=== PATIENT | female | born 1950 | race Caucasian/White ===

== ENCOUNTER → 2017-08-21 | Outpatient (CLI) | payer MEDICARE, OTHER ==
[~2017-08-21] MED LIST: CARTIA XT300 MG PO; LEXAPRO10 MG PO
--- NOTE | 2017-08-21 17:36 | Diagnostic Imaging Report ---
Exam: Head CT without contrast History: New onset headache Comparison studies: Brain MRI of 10/18/2014 Technique: Axial images were obtained from the skull base to the vertex. Coronal and sagittal images reconstructed from the axial data. Intravenous contrast: None Findings: Scalp: No abnormalities. Bones: No fractures, blastic or lytic lesions. Brain sulci: Appropriate for age. Ventricles: Normal in size and configuration. No hydrocephalus. Extra-axial spaces: No masses, no fluid collection. Parenchyma: No abnormal densities. No masses, acute hemorrhage or acute or chronic cortical vascular insults. Minimal chronic microvascular ischemic changes as seen on the previous brain MRI 10/18/2014 are beyond resolution of CT. Sellar/suprasellar region: No abnormalities. Craniocervical junction: Patent foramen magnum. No Chiari one malformation. Incidental findings: Bilateral lens replacements related to previous cataract surgery. IMPRESSION: 1. No acute intracranial abnormalities. 2. Minimal chronic microvascular ischemic changes as seen on the previous brain MRI are beyond resolution of CT. Signed by: Dr. Frankie Lamas M.D. on 08/21/2017 5:32 PM
== END ==
LOC: CT 16:07
PROVIDERS: ATTEND Family Medicine
DX: R51 Headache (principal); R42 Dizziness and giddiness
CPT/HCPCS: 70450

== ENCOUNTER 2018-04-29 21:25 | Emergency (ER) | payer MEDICARE, OTHER ==
[~2018-04-29] VITALS: Ht 162.6 cm; Wt 86.2 kg
--- OUTSIDE RECORDS SUMMARY | 2018-04-29 21:27 | XMS REPORT ---
Author Author [facility] Address Unknown Phone Unavailable Care Team Providers Care Data Reporting Analyst Name Role Phone ANNA MARIE SANCHEZ Unavailable Unavailable Problems This patient has no known problems. Allergies, Adverse Reactions, Alerts This patient has no known allergies or adverse reactions. Medications This patient has no known medications. Results Test Description Test Time Test Comments Text Results Atomic Results Result Comments CT BRAIN WO [place] [address] Patient Name: BRETT PACKER MR #: [id number] : 1950 Age/Sex: 66/F Req #: [id number] Adm Physician: Ordered by: ANNA MARIE SANCHEZ DO Report #: [id number] Location: CT Room/Bed: Procedure: [id number] CT/CT BRAIN WO Exam Date: 08/21/17 Exam Time: 1624 REPORT STATUS: Signed Exam: Head CT without contrast History: New onset headache Comparison studies: Brain MRI of 10/18/2014 Technique: Axial images were obtained from the skull base to the vertex. Coronal and sagittal images reconstructed from the axial data. Intravenous contrast: None Findings: Scalp: No abnormalities. Bones: No fractures, blastic or lytic lesions. Brain sulci: Appropriate for age. Ventricles: Normal in size and configuration. No hydrocephalus. Extra-axial spaces: No masses, no fluid collection. Parenchyma: No abnormal densities. No masses, acute hemorrhage or acute or chronic cortical vascular insults. Minimal chronic microvascular ischemic changes as seen on the previous brain MRI 10/18/2014 are beyond resolution of CT. Sellar/suprasellar region: No abnormalities. Craniocervical junction: Patent foramen magnum. No Chiari one malformation. Incidental findings: Bilateral lens replacements related to previous cataract surgery. IMPRESSION: 1. No acute intracranial abnormalities. 2. Minimal chronic microvascular ischemic changes as seen on the previous brain MRI are beyond resolution of CT. Signed by: Dr. Rafael Zepeda M.D. on 08/21/2017 5:32 PM Dictated By: RAFAEL ZEPEDA MD 173 Transcribed By: DIANA on 08/21/171731 COPY TO: ANNA MARIE SANCHEZ DO
[2018-04-29] MEDS ORDERED: TETANUS/DIPHTHERIA TOX ADULT 0.5 ML SYR IM ONE (22:15)
[2018-04-29 22:40] VITALS: BP 120/58
== END 2018-04-29 22:42 | disposition home or self-care (01) ==
LOC: ER 21:25
DX: S81.811A Laceration without foreign body, right lower leg, initial encounter (principal); W45.8XXA Other foreign body or object entering through skin, initial encounter; Y93.E1 Activity, personal bathing and showering; Y92.002 Bathroom of unspecified non-institutional (private) residence as the place of occurrence of the external cause
CPT/HCPCS: 90471; 90714; 99282

== ENCOUNTER → 2019-05-10 | Outpatient (CLI) | payer MEDICARE, OTHER ==
--- NOTE | 2019-05-10 13:40 | Diagnostic Imaging Report ---
Right knee MRI without contrast. History: Knee pain. Decreased range of motion. Fall. Contusion Comparison: None. Technique: Multiplanar multi-sequence MRI of the knee without contrast. Findings: Medial compartment: Complex tear involving the posterior horn and body segments of the medial meniscus best seen on sagittal image 12. The medial compartmental articular cartilage surfaces are thinned with regions of fraying and fissuring. Small peripheral marginal osteophytes. The medial collateral ligament complex is intact. Lateral compartment: Complex tear involving the posterior horn and body segments of the lateral meniscus best seen on sagittal image 29. The lateral compartmental articular cartilage surfaces are thinned with regions of fraying and fissuring. Peripheral marginal osteophytes. The lateral collateral ligament complex is intact. Intercondylar notch: The ACL and PCL are intact. Patellofemoral compartment: Regions of full-thickness articular cartilage loss in the patellofemoral compartment with underlying bone marrow edema. Extensor mechanism: The quadriceps and patellar tendons are normal. Other findings: There is a joint effusion and synovitis. Nondisplaced obliquely oriented slightly comminuted intra-articular fracture involving the central tibial plateau with associated bone marrow edema best seen on coronal image 12 through 15. IMPRESSION: Nondisplaced obliquely oriented slightly comminuted intra-articular fracture involving the central tibial plateau with associated bone marrow edema. 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 Regions of full-thickness articular cartilage loss in the patellofemoral compartment with underlying bone marrow edema. Signed by: Dr. Alonzo Fine M.D. on 05/10/2019 1:37 PM
== END ==
LOC: MRI 12:43
PROVIDERS: ATTEND Family Medicine
DX: S80.01XA Contusion of right knee, initial encounter (principal)

== ENCOUNTER 2019-05-18 07:25 | Emergency (ER) | payer MEDICARE, OTHER ==
[~2019-05-18] VITALS: Ht 162.6 cm; Wt 86.2 kg
[2019-05-18] MEDS ORDERED: MORPHINE SULFATE 2 MG/ML SYR 1ML IV STA (07:38)
[2019-05-18] MEDS ORDERED: FAMOTIDINE 20 MG/2 ML VIAL IV STA (07:38)
[2019-05-18] MEDS ORDERED: ONDANSETRON HCL INJ 2MG/ML 2ML 2 MG/ML VIAL IV STA (07:38)
[2019-05-18] MEDS ORDERED: SODIUM CHLORIDE 0.9% 1000ML 1,000 ML IV STA ×2 (07:38)
[2019-05-18 07:54] LABS: BASOPHILS % 0.5 % (0.0-1.0); EOSINOPHILS % 0.4 % (0.0-6.0); HEMATOCRIT 42.4 % (34.2-44.1); HEMOGLOBIN 13.4 g/dL (12.0-16.0); LYMPHOCYTES % 13.8 % (18.0-39.1); MEAN CORPUSCULAR HEMOGLOBIN 26.5 pg (28-32); MEAN CORPUSCULAR HGB CONC 31.6 g/dL (31-35); MONOCYTES # (AUTO) 0.7 (0.2-0.8); MONOCYTES % 9.9 % (4.4-11.3); NEUTROPHILS # (AUTO) 5.5 (2.1-6.9); NEUTROPHILS % 74.9 % (38.7-80.0); PLATELET COUNT 187 x10e3/uL (140-360); RED BLOOD COUNT 5.05 x10e6/uL (3.6-5.1); RED CELL DISTRIBUTION WIDTH 14.8 % (11.7-14.4)
[2019-05-18 08:16] LABS: ALANINE AMINOTRANSFERASE 34 IU/L (0-55); ALBUMIN 3.6 g/dL (3.5-5.0); ALKALINE PHOSPHATASE 60 IU/L (40-150); ANION GAP 13.3 mmol/L (8-16); BLOOD UREA NITROGEN 14 mg/dL (7-26); BUN/CREATININE RATIO 16 (6-25); CALCIUM 8.7 mg/dL (8.4-10.2); CARBON DIOXIDE 28 mmol/L (22-29); CHLORIDE 101 mmol/L (98-107); CREATINE KINASE 42 IU/L (29-168); CREATININE, SERUM 0.89 mg/dL (0.57-1.11); EST GLOMERULAR FILTRATION RATE > 60 ML/MIN (60-); GLUCOSE 102 mg/dL (74-118); MAGNESIUM 1.7 MG/DL (1.3-2.1); POTASSIUM 3.3 mmol/L (3.5-5.1); SODIUM 139 mmol/L (136-145)
[2019-05-18] MEDS ORDERED: IOPAMIDOL 370 MG/ML 200 ML INFUS..BTL INJ ONE (08:28)
[2019-05-18] MEDS ORDERED: SODIUM CHLORIDE 0.9% 50ML 50 ML ONE (08:28)
[2019-05-18 09:31] LABS: CREATINE KINASE MB < 1.00 ng/mL (0-4.3)
--- NOTE | 2019-05-18 09:32 | Diagnostic Imaging Report ---
CT of the abdomen and pelvis, with contrast. History: Abdominal pain. Comparison: None available. Technique: Multidetector CT scanning of the abdomen and pelvis was performed from the level of the lung bases to the inferior pubic rami after intravenous contrast material only. Coronal and sagittal multiplanar reformations were obtained. RADIATION DOSE: Total DLP: 765.76 mGy*cm Dose modulation, iterative reconstruction, and/or weight based adjustment of the mA/kV was utilized to reduce the radiation dose to as low as reasonably achievable. FINDINGS: The visualized lungs are unremarkable. The imaged portion of the heart demonstrates no significant abnormalities. The liver is normal in size and attenuation without evidence for focal abnormality. The gallbladder is not visualized and may be surgically absent. There is mild prominence of the central intrahepatic bile ducts. There is dilatation of the common bile duct measuring up to 1.7 cm. No radiopaque stone is identified within the biliary ductal system. The stomach, spleen, pancreas, and bilateral adrenal glands are unremarkable. Incidentally noted is a splenule adjacent to the spleen. The kidneys are normal in size and location and enhance symmetrically. There is no evidence for hydronephrosis. The ureters are normal course and caliber. The urinary bladder demonstrates no significant abnormalities. The uterus and adnexa are grossly unremarkable. The abdominal aorta is normal course and caliber. The IVC is unremarkable. Please note evaluation of bowel is limited without the use of enteric contrast material. Mild wall thickening noted of the sigmoid colon in a region of diverticula without significant adjacent inflammatory change. The remaining visualized loops of small and large bowel demonstrate no evidence of obstruction or inflammation. There is no ascites or intraperitoneal free air. Scattered normal sized mesenteric lymph nodes noted. No abnormally enlarged lymph nodes are identified within the abdomen or pelvis. The osseous structures demonstrate no evidence of acute fracture or destructive process. The extraperitoneal soft tissues are unremarkable. IMPRESSION: 1. Mild wall thickening noted of the sigmoid colon in the region of diverticula without significant adjacent inflammatory change. Findings may reflect sequela of prior diverticulitis. An early/developing acute diverticulitis could have a similar appearance. Recommend correlation with symptomatology. 2. Dilatation of the common bile duct measuring up to 1.7 cm which may be secondary to postcholecystectomy status. No radiopaque biliary stone is identified. Signed by: Dr. Lokesh Isabel MD on 05/18/2019 9:29 AM
[2019-05-18 09:33] LABS: BILIRUBIN,URINE NEGATIVE (NEGATIVE); CLARITY,URINE CLEAR (CLEAR); COLOR,URINE YELLOW (YELLOW); KETONES,URINE NEGATIVE (NEGATIVE); LEUKOCYTE ESTERASE ,URINE NEGATIVE (NEGATIVE); NITRITE,URINE NEGATIVE (NEGATIVE); PROTEIN,URINE DIPSTICK NEGATIVE (NEGATIVE); URINE UROBILINOGEN 0.2 mg/dL (0.2 - 1)
[2019-05-18 09:45] LABS: BACTERIA,URINE FEW /HPF; EPITHELIAL CELLS,URINE FEW /LPF; RBC,URINE 0-5 /HPF (0-5); WBC,URINE (MAN) 0-5 /HPF (0-5)
[2019-05-18] MEDS ORDERED: CIPROFLOXACIN 400 MG/D5W 200ML 200 ML IV ONE (10:00)
[2019-05-18 10:14] LABS: LIPASE 30 U/L (8-78)
[2019-05-18] MEDS ORDERED: METRONIDAZOLE 500 MG TAB PO ONE ×2 (10:45→11:10)
[2019-05-18] MEDS ORDERED: METRONIDAZOLE 500MG/NS 100ML 100 ML IV ONE (11:00)
[2019-05-18] MEDS ORDERED: CIPROFLOXACIN 500 MG TAB PO SCH (11:10)
== END 2019-05-18 11:23 | disposition home or self-care (01) ==
LOC: ER 07:25
DX: K51.90 Ulcerative colitis, unspecified, without complications (principal); K52.9 Noninfective gastroenteritis and colitis, unspecified; I10 Essential (primary) hypertension; F41.9 Anxiety disorder, unspecified
CPT/HCPCS: 36415; 74177; 80053; 81001; 82550; 82553; 83690; 83735; 84484; 85025; 87086; 93005; 99284; J2270; J2405; J7030; Q9967

== ENCOUNTER → 2020-03-24 | Outpatient (CLI) | payer MEDICARE, OTHER | LOC: MRI 10:55 | PROVIDERS: ATTEND Family Medicine | DX: S83.92XA Sprain of unspecified site of left knee, initial encounter (principal); M25.562 Pain in left knee ==

== ENCOUNTER → 2021-04-20 | Outpatient (CLI) | payer MEDICARE, OTHER | LOC: CT 13:26 | PROVIDERS: ATTEND Family Medicine | DX: R07.81 Pleurodynia (principal) | CPT/HCPCS: 71250 ==

== ENCOUNTER → 2021-04-23 | Outpatient (CLI) | payer MEDICARE, OTHER | LOC: MAMMO 13:33 | PROVIDERS: ATTEND Family Medicine | DX: Z12.31 Encounter for screening mammogram for malignant neoplasm of breast (principal) | CPT/HCPCS: 77067 ==

== ENCOUNTER → 2024-08-31 | Outpatient (REF) | payer MEDICARE, OTHER | LOC: MAMMO 09:31 | PROVIDERS: ATTEND Family Medicine | DX: Z12.31 Encounter for screening mammogram for malignant neoplasm of breast (principal) | CPT/HCPCS: 77067 ==